=== PATIENT | female | born 1985 | race Caucasian/White ===

== ENCOUNTER 2016-07-09 12:26 | Emergency (ER) | payer BC ==
[2016-07-09 12:39] VITALS: BP 130/81
--- NOTE | 2016-07-09 13:12 | UC ---
Subhash Gibbons Anna, [facility] on 07/09/16 at 1243 . Abdominal Pain Female HPI - HPI Summary HPI Summary: MD Note Vital signs stable. Temperature 98. Pulse ox 100. 7/10 RLQ pain. Patient is visiting [place]. Patient is on control. Nondrinker, nonsmoker. Nurses Note LOWER RIGHT ABD PAIN STARTED THIS MORNING AROUND 0200, PAIN CONSTANT SINCE. AT TIMES PAIN RADIATES UP UNDER RIGHT RIBS. INCREASE IN PAIN WITH TOUCHING, STEPPING, STANDING, MOVEMENT. DENIES N/V/D, URINARY SYMPTOMS. In Room Note Patient is a 31 y/o female coming to [facility] presenting with sudden onset of constant RLQ PAIN that began this morning at 0200. The pain radiates to her right ribs when she stands up. The pain is EXACERBATED BY PALPATION AND MOVEMENT , including pot holes while driving. She starts to feel some NAUSEA at the peak of the pain and felt LACK OF APPETITE this morning. Denies constipation, cough, emesis, diarrhea, vaginal discharge, and urinary symptoms. She had intermittent abd pain one month ago, but it was not of the same severity and lasted three days. She denies Hx of ovarian cysts, fibroids, endometriosis, STI. She is sexually active. She was told by her doctor that she had an inflamed large intestine four years ago. Onset: sudden Palliative/Provocative: abd pain Quality: sharp Region: RLQ Severity: 7/10 Time: constant Associated Sx: nausea , lack of appetite Home Rx: None - History of Current Complaint Chief Complaint: UCAbdominalPain Stated Complaint: LOWER ABD PAIN Time Seen by Provider: 07/09/16 12:40 Hx Obtained From: Patient Hx Last Menstrual Period: 06/18/16 Allergies/Adverse Reactions: Allergies Allergy/AdvReac Type Severity Reaction Status Date / Time No Known Allergies Allergy Verified 07/09/16 12:33 Home Medications: Home Medications Control 1 tab PO DAILY 07/09/16 [History] Cholecalciferol TAB* [Vitamin D TAB*] 2,000 unit PO DAILY 07/09/16 [History Confirmed 07/09/16] PMH/Surg Hx/FS Hx/Imm Hx - Additional Past Medical History Additional PMH: 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, inflamed large intestine Previously Healthy: Yes Endocrine History Of: Denies: Diabetes Cardiovascular History Of: Reports: Cardiac Disorders - Previous murmur, resolved Denies: Hypertension - Surgical History Surgical History: None - Family History Known Family History: Positive: Cardiac Disease, Hypertension, Diabetes, Other - Hx appendicitis, ovarian cysts - Social History Occupation: Employed Full-time Alcohol Use: None Substance Use Type: None Smoking Status (MU): Never Smoked Tobacco Review of Systems Constitutional: Other - lack of appetite Skin: Negative Eyes: Negative ENT: Negative Respiratory: Negative Cardiovascular: Negative Gastrointestinal: Abdominal Pain, Other - nausea Genitourinary: Negative Motor: Negative Neurovascular: Negative Musculoskeletal: Negative Neurological: Negative Psychological: Negative All Other Systems Reviewed And Are Negative: Yes Physical Exam Triage Information Reviewed: Yes Appearance: Well-Appearing, No Pain Distress, Well-Nourished Vital Signs: Initial Vital Signs Temp 98.0 F 07/09/16 12:35 Pulse 72 07/09/16 12:35 Resp 16 07/09/16 12:35 BP 130/81 07/09/16 12:35 Pulse Ox 100 07/09/16 12:35 Vital Signs Reviewed: Yes Eyes: Positive: Conjunctiva Clear ENT: Positive: Hearing grossly normal, Pharynx normal, TMs normal. Negative: Muffled/hoarse voice Neck: Positive: Supple, No Lymphadenopathy Respiratory: Positive: Chest non-tender, Lungs clear, Normal breath sounds, No respiratory distress Cardiovascular: Positive: RRR, No Murmur Abdomen Description: Positive: No Organomegaly, Soft, Other: - PERCUSSION OF LLQ RADIATES TO RLQ. VERY TENDER RLQ. UPON PALPATION TO RLQ, [place] IS MODERATELY TENDER. Negative: Nontender Bowel Sounds: Positive: Hyperactive Musculoskeletal: Positive: Strength Intact, Other: - CALI Neurological: Positive: Alert Psychological: Positive: Age Appropriate Behavior Skin: Negative: rashes Abd Pain Female Course/Dx - Course Course Of Treatment: Discussed differential diagnosis with the patient. She will , by her choice, drive to the Emergency Department for further evaluation and treatment. UA is 75 Le[address], otherwise normal. Dx is RLQ abd pain: unclear etiology. - Differential Dx/Diagnosis Differential Diagnosis: Other - ovarian cyst v. appendicitis v. cyclic pain related to menses Provider Diagnoses: RLQ abd pain: unclear etiology - Physician Notification/Consults Discussed Patient Care With: Dr. Horacio Watkins (ED Provider) at 1310. Agrees to accept patient at the ED. Discharge - Discharge Plan Condition: Stable Disposition: TRANS HIGHER LVL OF CARE FAC Patient Education Materials: Acute Abdominal Pain (ED) Additional Instructions: WE DISCUSSED: GO DIRECTLY TO ED. YOUR PAIN IN YOUR LOWER RIGHT ABDOMEN MAY BE RELATED TO THE APPENDIX, AN OVARIAN CYST OR ANOTHER CAUSE. The documentation as recorded by the Subhash galaviz Anna accurately reflects the service I personally performed and the decisions made by , Darwin Chapin MD.
== END 2016-07-09 13:26 | disposition short-term general hospital (02) ==
LOC: UCEAST 12:26
DX: R10.31 Right lower quadrant pain (principal); R11.0 Nausea; Z32.02 Encounter for pregnancy test, result negative
CPT/HCPCS: 81002; 81025; 87086; 99201; G0463

== ENCOUNTER 2016-07-09 13:33 | Observation (INO) | payer BC ==
[2016-07-09] MEDS ORDERED: NS 0.9% 1000 ML* 1,000 ML IV ONE (15:11)
[2016-07-09 15:36] LABS: Hematocrit 39 % (35-47); Hemoglobin 13.1 g/dl (12.0-16.0); Mean Corpuscular HGB Conc 33 g/dl (31-36); Mean Corpuscular Hemoglobin 30 pg (27-31); Mean Corpuscular Volume 89 fL (80-97); Mean Platelet Volume 10 um3 (7.4-10.4); Red Blood Count 4.41 10^6/ul (4.0-5.4); Red Cell Distribution Width 14 % (10.5-15)
--- NOTE | 2016-07-09 15:38 | ED ---
Abdominal Pain/Female - HPI Summary HPI Summary: 31F presents with RLQ today at 6am. Her last meal with this morning. She admits to anorexia but denies any nausea, vomiting, or diarrhea. She said she had this pain a month ago but it was not this severe. She is concerned for an appendicitis. She denies any history of STDs, vaginal discharge, hematuria, or dysuria. LMP was 2 weeks ago. - History of Current Complaint Chief Complaint: EDAbdPain Stated Complaint: LOWER RT ABD PAIN Time Seen by Provider: 07/09/16 15:10 Hx Last Menstrual Period: 06/18/16 Pain Intensity: 7 Allergies/Adverse Reactions: Allergies Allergy/AdvReac Type Severity Reaction Status Date / Time No Known Allergies Allergy Verified 07/09/16 13:46 PMH/Surg Hx/FS Hx/Imm Hx Endocrine/Hematology History: Denies: Hx Diabetes Cardiovascular History: Denies: Hx Hypertension Infectious Disease History: No Infectious Disease History: Denies: Traveled Outside the [place] in Last 30 Days - Family History Known Family History: Positive: Cardiac Disease, Hypertension, Diabetes, Other - Hx appendicitis, ovarian cysts - Social History Alcohol Use: None Substance Use Type: Reports: None Smoking Status (MU): Never Smoked Tobacco Review of Systems Negative: Fever Negative: Chest Pain Negative: Shortness Of Breath Positive: Abdominal Pain - RLQ. Negative: Vomiting, Diarrhea, Nausea All Other Systems Reviewed And Are Negative: Yes Physical Exam Triage Information Reviewed: Yes Vital Signs On Initial Exam: Initial Vitals Temp Pulse Resp BP Pulse Ox 98.4 F 71 15 120/88 100 07/09/16 13:42 07/09/16 13:42 07/09/16 13:42 07/09/16 13:42 07/09/16 13:42 Vital Signs Reviewed: Yes Appearance: Positive: Well-Appearing Skin: Positive: Warm, Dry Head/Face: Positive: Normal Head/Face Inspection Eyes: Positive: Normal, Conjunctiva Clear ENT: Positive: Normal ENT inspection, Pharynx normal, TMs normal Respiratory/Lung Sounds: Positive: Clear to Auscultation, Breath Sounds Present Cardiovascular: Positive: Normal, RRR Abdomen Description: Positive: Soft, Other: - tenderness in RLQ, pos rovsings sign, no rebound tenderness Bowel Sounds: Positive: Present Diagnostics - Vital Signs Vital Signs Temp Pulse Resp BP Pulse Ox 07/09/16 13:42 98.4 F 71 15 120/88 100 - Laboratory Lab Results: Lab Results 07/09/16 Range/Units 15:25 WBC 11.0 H (3.5-10.8) 10^3/ul RBC 4.41 (4.0-5.4) 10^6/ul Hgb 13.1 (12.0-16.0) g/dl Hct 39 (35-47) % MCV 89 (80-97) fL MCH 30 (27-31) pg MCHC 33 (31-36) g/dl RDW 14 (10.5-15) % Plt Count 190 (150-450) 10^3/ul MPV 10 (7.4-10.4) um3 Neut % (Auto) 78.9 (38-83) % Lymph % (Auto) 15.9 L (25-47) % Mccone % (Auto) 4.0 (1-9) % Eos % (Auto) 0.6 (0-6) % Baso % (Auto) 0.6 (0-2) % Absolute Neuts (auto) 8.7 H (1.5-7.7) 10^3/ul Absolute Lymphs (auto) 1.8 (1.0-4.8) 10^3/ul Absolute Monos (auto) 0.4 (0-0.8) 10^3/ul Absolute Eos (auto) 0.1 (0-0.6) 10^3/ul Absolute Basos (auto) 0.1 (0-0.2) 10^3/ul Absolute Nucleated RBC 0.01 10^3/ul Nucleated RBC % 0.1 Result Diagrams: 07/09/16 15:25 07/09/16 15:25 Lab Statement: Any lab studies that have been ordered have been reviewed, and results considered in the medical decision making process. - CT abdomen CT Interpretation: Positive (See Comments) - IMPRESSION: Acute appendicitis. Negative for periappendiceal abscess or resulting bowel obstruction. CT Interpretation Completed By: Radiologist Abdominal Pain Fem Course/Dx - Course Course Of Treatment: 31F presents with RLQ pain for a day, admits to anorexia, denies any nausea, vomiting, diarrhea. tender to palpation of RLQ, CT showed appendicitis, called surgery and took to OR - Diagnoses Differential Diagnosis: Positive: Appendicitis, Pancreatitis, Urinary Tract Infection Provider Diagnoses: Appendicitis, acute Discharge - Discharge Plan Condition: Good Disposition: ADMITTED TO [facility]
[2016-07-09 15:52] LABS: ALT 14 U/L (7-52); AST 14 U/L (13-39); Albumin 3.8 g/dL (3.2-5.2); Alkaline Phosphatase 53 U/L (34-104); Anion Gap 5 mmol/L (2-11); BUN/Creatinine Ratio 17.1 (8-20); Blood Urea Nitrogen 14 mg/dL (6-24); CO2 Carbon Dioxide 26 mmol/L (22-32); Calcium 9.2 mg/dL (8.6-10.3); Chloride 105 mmol/L (101-111); EGFR African American 104.6 (>60); EGFR Non-African American 81.3 (>60); Globulin 3.1 g/dL (2-4); Glucose 79 mg/dL (70-100); Lipase 12 U/L (11.0-82.0); Potassium 3.9 mmol/L (3.5-5.0); Sodium 136 mmol/L (133-145); Total Protein 6.9 g/dL (6.4-8.9)
[2016-07-09] MEDS ORDERED: Iohexol 300* (CONTRAST) 10 ML SDV IV ONE (17:17)
--- NOTE | 2016-07-09 18:01 | RAD ---
INDICATION: RIGHT lower quadrant abdominal pain. Assess for appendicitis. COMPARISON: None. TECHNIQUE: Multidetector CT images were obtained from the lung bases to the ischial tuberosities with 97 mL Omnipaque 300 IV and oral contrast. Multiplanar reformation. REPORT: Unremarkable visualized inferior thorax. Negative for CT abnormality of the liver, gallbladder, pancreas, spleen. Enteric contrast extends to the descending colon sigmoid junction. Negative for CT abnormality of the upper GI or small bowel. Enlarged appendix measuring up to 1 cm diameter with subtle mural enhancement is visualized lateral to the cecum in the anterior RIGHT lower quadrant. Mild periappendiceal inflammatory stranding. Suggestion of potential weakly calcified appendicolith within the proximal appendix. No periappendiceal abscess or extra enteric gas. Small volume of RIGHT lower quadrant and dependent pelvic free fluid. Unremarkable colon. Normal adrenal glands. Unremarkable kidneys with symmetric nephrograms and pyelograms. Unremarkable ureters and largely decompressed urinary bladder as well as the anteverted uterus and adnexal regions. Negative for lymphadenopathy. Normal diameter abdominal aorta and iliac arteries. Physiologic distention of the IVC indicating high state of hydration. No suspicious osseous lesions evident. Echols images saved on the [facility] [place] [place] PACS. IMPRESSION: Acute appendicitis. Negative for periappendiceal abscess or resulting bowel obstruction.
[2016-07-09] MEDS ORDERED: Bupivacaine 0.5% W/EPI SDV* 30 ML VIAL ONE (19:42)
--- NOTE | 2016-07-09 19:47 | HP ---
H&P (Free Text) History and Physical: CC: abdominal pain HPI: 31 y.o F with h/o abd pain starting at 2 am. It woke her from sleep but she was able to go back to sleep but slept poorly. She had a similar episode of milder pain 1 month ago that resolve in a few days. She thought it was "a ruptured cyst" though she had not had a h/o cysts. This am she had a yogurt for breakfast, but was not hungry. As her pain worsened with walking and became more severe, she went to the [facility] and eventually transferred to the ED. She had a CT scan to further evaluate and was noted to have a dilated, fluid filled appendix with inflammatory changes, consistent with acute appendicitis. A surgical evaluation was requested by the ED. She denies nausea/vomiting/diarrhea/constipation/fever/chills. No dysuria/ hematuria. PMH: chronic bilateral ankle tendonitis PSH: none Meds: OCP NKDA SH: denies tob/IVDA; last had EtOH in 2015 (rarely drinks); works as a cannon fire direction specialist; is single. FH: father has HTN, age 56; mother has asthma, age 56; brother A&W, age mid-30' s. No h/o blood clots; heart disease. ROS: 14 point review performed; pertinent positives and negatives as above, otherwise negative. PE: Vital Signs Temp 98.4 F 07/09/16 18:52 Pulse 61 07/09/16 18:52 Resp 16 07/09/16 18:52 BP 129/84 07/09/16 18:52 Pulse Ox 100 07/09/16 13:42 HEENT: NCAT, EOMI, anicteric sclera; MMM; no otorhinorrhea; OP clear. Neck: symmetrical, no TONIA; trachea M/L. Lungs: CTA B; no W/R/R Heart: Reg s1s2; no M/R/G. Abd: +BS, ND, soft; tender in RLQ to palpation/percussion; +Rovsing sx. Ext: warm, no C/C/E Laboratory Results - last 24 hr 07/09/16 07/09/16 15:25 15:25 WBC 11.0 H RBC 4.41 Hgb 13.1 Hct 39 MCV 89 MCH 30 MCHC 33 RDW 14 Plt Count 190 MPV 10 Neut % (Auto) 78.9 Lymph % (Auto) 15.9 L Mayes % (Auto) 4.0 Eos % (Auto) 0.6 Baso % (Auto) 0.6 Absolute Neuts (auto) 8.7 H Absolute Lymphs (auto) 1.8 Absolute Monos (auto) 0.4 Absolute Eos (auto) 0.1 Absolute Basos (auto) 0.1 Absolute Nucleated RBC 0.01 Nucleated RBC % 0.1 Sodium 136 Potassium 3.9 Chloride 105 Carbon Dioxide 26 Anion Gap 5 BUN 14 Creatinine 0.82 Est GFR ( Amer) 104.6 Est GFR (Non-Af Amer) 81.3 BUN/Creatinine Ratio 17.1 Glucose 79 Calcium 9.2 Total Bilirubin 0.50 AST 14 ALT 14 Alkaline Phosphatase 53 C-React Prot High Sens 39.85 Total Protein 6.9 Albumin 3.8 Globulin 3.1 Albumin/Globulin Ratio 1.2 Lipase 12 Beta HCG, Quant < 0.60 CT scan images reviewed from 07/09/16. Findings as above. Impression: 31 yo F with Acute Appendicitis. This appears to be early appendicitis. Plan: The findings were d/w the patient and her signif other who accompanied her. I recommend laparoscopic appendectomy. The nature of the procedure, indications, risks, benefits, alternatives, and option of no treatment were discussed. The risks were explained, including, but not limited to: bleeding, infection, pain, scarring, blood clots, pneumonia, nausea, vomiting, visceral injury (bowel, bladder) and the risks of gen anesthesia. In addition, the possibility of open procedure was discussed. Expectations regarding hospital stay, recovery, and return to work were all discussed as well. The patient had an opportunity to ask questions. All her questions were answered. She stated understanding and agrees to proceed.
[2016-07-09] MEDS ORDERED: Rocuronium* 10 MG/ML VIAL ONE (19:48)
[2016-07-09] MEDS ORDERED: Propofol* 10 MG/ML 20 ML BTL IV PUSH ONE ×2 (19:48→20:39)
[2016-07-09] MEDS ORDERED: Lidocaine 2% PF * 5 ML VIAL ONE (19:48)
[2016-07-09] MEDS ORDERED: fentaNYL* 50 MCG/ML 2 ML VIAL (100 MCG VIAL) ONE (19:49)
[2016-07-09] MEDS ORDERED: fentaNYL* 50 MCG/ML 2 ML VIAL (100 MCG VIAL) IV PRN (19:54)
[2016-07-09] MEDS ORDERED: Ondansetron INJ* 2 MG/ML VIAL IV PRN (19:54)
[2016-07-09] MEDS ORDERED: ceFOXitin 2 GM IVPREMIX* 2 GM/50 ML BAG ONE (19:55)
[2016-07-09] MEDS ORDERED: Ibuprofen TAB* 600 MG PO PRN (20:57)
[2016-07-09] MEDS ORDERED: oxyCODONE/Acetamin 5/325 MG* TAB PO PRN (20:57)
[2016-07-09] MEDS ORDERED: diPHENhydraMINE IV* 25 MG in NS 0.9% 50 ML* 50 ML IVPB PRN (20:57)
[2016-07-09] MEDS ORDERED: HYDROmorphone INJ* 1 MG/ML CARPUJECT SYRINGE IV SLOW PU PRN (20:57)
--- NOTE | 2016-07-09 20:57 | SURGPN ---
Brief Operative Note - Surgery Procedures: PRE/POSTOP DX: ACUTE APPENDICITIS PROC: LAPAROSCOPIC APPENDECTOMY SURG:MECENAS ASSIST: NONE ANES: DARCY/ FROYLAN EBL: MIN IVF: 1.5 L LR SPEC: APPENDIX DRAIN: NONE COMPL: NONE COND: STABLE TO RR, EXTUBATED.
[2016-07-09] MEDS ORDERED: Ondansetron INJ* 2 MG/ML VIAL ONE (22:47)
[2016-07-10] MEDS: oxyCODONE/Acetamin 5/325 MG* TAB PO PRN ×2 (07:15→13:00)
[2016-07-10] MEDS ORDERED: Influenza VAC *QUAD* 2016-17* 0.5 ML SYRINGE IM ONE (09:00)
[2016-07-10] MEDS ORDERED: ceFOXitin 2 GM IVPREMIX* 2 GM/50 ML BAG IVPB ONE (10:00)
[2016-07-10 13:44] VITALS: BP 119/75
--- NOTE | 2016-07-11 02:05 | DS ---
DISCHARGE SUMMARY: DATE OF ADMISSION: 07/09/16 DATE OF DISCHARGE: 07/10/16 HOSPITAL COURSE: Please refer to admission history and physical for admission details. The patient was taken to the operating room the evening of 07/09/16 and underwent laparoscopic appendectomy for acute nonruptured appendicitis with Dr. Hicks. As of the morning of discharge, she was doing well with good pain control and tolerating oral diet. Vital signs: Temperature 98.2, blood pressure 135/87, pulse 83, respirations 16, room air saturation 99%. The patient had been seen and examined earlier by Dr. Hicks. Instructions were reviewed in both verbal and written forms. Prescription had been e-sent to [facility] at [employer]. She has a followup appointment in our office on 07/15/16. FELIPE PROCTOR [id number]/[facility] #: [id number] MTDKizzy
--- NOTE | 2016-07-16 02:28 | OP ---
DATE OF OPERATION: 07/09/16 - ROOM #340 DATE OF : 85 SURGEON: Pablo Hicks MD IMMIGRATION ASSOCIATE: None. ANESTHESIOLOGIST: Dr. Olivia. ANESTHESIA: General endotracheal. PRE-OP DIAGNOSIS: Acute appendicitis. POST-OP DIAGNOSIS: Acute appendicitis. OPERATIVE PROCEDURE: Laparoscopic appendectomy. ESTIMATED BLOOD LOSS: Minimal. IV FLUIDS: 1.5 L of crystalloid. SPECIMEN: Appendix. DRAINS: None. COMPLICATIONS: None. COUNTS: Instrument, needle, and sponge counts correct. DESCRIPTION OF PROCEDURE: The patient was brought to the operating room and placed on the table supine. Sequential compression devices were placed on both lower extremities. General anesthesia was administered. She was prepped and draped in the usual sterile fashion and time-out was performed. Local anesthetic was infiltrated into the skin and soft tissue prior to making each incision. Entry to the abdomen was through a transumbilical incision using an open technique. After accessing the peritoneal cavity, carbon dioxide was insufflated to a pressure of 15 mmHg. Under direct visualization, addition of two 5-mm trocars were made, one in the suprapubic midline and one in the left lower quadrant. The appendix was identified. It appeared to be acutely inflamed with suppurative changes. The appendix was elevated. A window created in the mesentery of the appendix at the base and the appendix was divided from the cecum with the EndoGIA stapler with evans cartridge. The mesentery of the appendix was divided with the EndoGIA stapler with carrasco cartridge. The appendix was placed into a retrieval bag and retrieved through the umbilical port site. Staple lines were inspected and noted to be intact and hemostatic. Ports were removed under direct visualization. Carbon dioxide was released. The umbilicus was closed with 0 Polysorb in a figure- of-8 fashion to approximate the fascia. Skin incisions were then closed with 4-0 Monocryl in a subcuticular fashion. DermaFlex and Steri-Strips were applied. The patient tolerated the procedure well. She was extubated and transferred to the recovery room in stable condition. [id number]/[facility] #: [id number] [facility] HOSPITALKizzy
== END 2016-07-10 13:20 | disposition home or self-care (01) ==
LOC: ED 13:33 → OR 19:04 → SSU 23:19
PROVIDERS: ADMIT Surgery; ATTEND Surgery
PROC: 0DTJ4ZZ Resection of Appendix, Percutaneous Endoscopic Approach (ICD-10-PCS; principal; 2016-07-09 20:00)
DX: K35.80 Unspecified acute appendicitis (principal)
CPT/HCPCS: 36415; 74177; 80053; 83690; 84702; 85025; 86141; 88304; 99283; A9270-GY; C1776; G0378; J0694; J2405; J2704; J3010; Q9967